=== PATIENT | female | born 1940 | race Two or more races ===

== ENCOUNTER 2017-11-15 12:56 | Outpatient (CLI) | payer MEDICARE, BC ==
[~2017-11-15] VITALS: Ht 154.9 cm; Wt 53.5 kg
[~2017-11-15 12:56] MED LIST: AMITRIPTYLINE25 MG ORAL; ATORVASTATIN CA10 MG ORAL; KLONOPIN0.5 MG ORAL; METFORMIN HCL500 M1 ORAL; SYNTHROID100 MCG ORAL; [UNRECOGNIZED DRUG - OTHER]
[2017-11-15 13:08] VITALS: BP 109/54
--- NOTE | 2017-11-15 14:17 | GI Initial Consult Note ---
History of Present Illness General Date patient seen: Nov 15, 2017 Time patient seen: 14:06 Referring physician: NGUYỄN Reason for Consultation: EGD/COLONOSCOPY SCREENING Present Illness HPI 77 year old patient, referred by Dr. Esposito for routine EGD/colonoscopy screening. Last EGD/colonoscopy performed 2013. She presents today with no GI symptoms; denies abdominal pain, N/V/D or diarrhea. Denies any unintentional weight loss or changes in dietary habits. No signs of abuse or neglect. Patient is not fall risk. Home Meds Reported Medications Amitriptyline HCl (ELAVIL*) 25 Mg Tab, 25 MG ORAL BEDTIME, TAB 12/05/13 Clonazepam* (KLONOPIN*) 0.5 Mg Tablet, 0.5 MG ORAL Q6H, #15 TAB 0 Refills 12/05/13 Metformin Hcl* (METFORMIN HCL*) 500 Mg Tablet, 500 MG ORAL TWICE A DAY, TAB 12/05/13 Levothyroxine Sodium* (SYNTHROID*) 100 Mcg Tablet, 100 MCG ORAL DAILY, TAB Take in the morning on an empty stomach, at least 30 minutes before food. 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 Past Surgical History: Thyroidectomy Right knee Arthroscopy Bunion Family History Narrative Father >> CVA Mother >> CAD Social History: Reports: other - tea Review of Systems All Other Systems: negative except mentioned in HPI Physical Exam BP 109/54 P 82 96 RA HT 5'11 WT 118 Sp02 EP Interpretation: reviewed, normal General Appearance: well appearing, no apparent distress, alert Head: normocephalic EENT: PERRL/EOMI, normal ENT inspection Neck: supple Respiratory: normal breath sounds, no respiratory distress Cardiovascular: normal rate Gastrointestinal: normal inspection, non tender, soft, normal bowel sounds, non -distended Rectal: deferred Genitourinary: no CVA tenderness Musculoskeletal: normal inspection, back normal Neurologic: normal inspection, alert, oriented x3, responsive Psychiatric: normal inspection, judgement/insight normal, memory normal Skin: normal inspection, normal color, no rash, warm/dry, palpation normal, well hydrated Lymphatic: normal inspection, no adenopathy GI: Plan Problems: (1) Colonoscopy planned (2) H/O thyroidectomy (3) S/P knee surgery Plan EGD/colonoscopy scheduled 11/28/17. - CLD & (Nulytely/Suprep/Movi-Prep) prep instructions given and acknowledged by patient. - NPO @ [place] day prior procedure explained. Seen with Dr. Cody. Thank you for this patient referral. The patient was seen and examined at bedside and all new and available data was reviewed in the patients chart. I agree with the above findings, impression and plan. (Patient seen earlier today. Signature stamp does not reflect patient encounter time.). - MD Leti SinclairAbrazo Arizona Heart HospitalHumberto RETORT LOAD EXPEDITER Nov 15, 2017 14:16
[2017-11-15] MEDS ORDERED: ADVIL200 MG ORAL (16:07)
== END 2017-11-15 13:26 | disposition home or self-care (01) ==
LOC: PAN 12:56
DX: Z12.11 Encounter for screening for malignant neoplasm of colon (principal); E89.0 Postprocedural hypothyroidism; Z98.890 Other specified postprocedural states; M19.90 Unspecified osteoarthritis, unspecified site
CPT/HCPCS: 99201

== ENCOUNTER → 2017-12-27 | Day surgery (SDC) | payer MEDICARE, BC ==
--- NOTE | 2017-11-28 08:32 | Anethesia Preoperative Eval ---
Anesthesia Pre-op PMH/ROS General Date of Evaluation: Nov 28, 2017 Time of Evaluation: 08:26 Anesthesiologist: farhan Mallampati Score Class I : Soft palate, uvula, fauces, pillars visible Class II: Soft palate, uvula, fauces visible Class III: Soft palate, base of uvula visible Class IV: Only hard plate visible Surgeon: yobany Diagnosis: abdominal pain Surgical Procedure: egd/colonoscopy Anesthesia History: none Social History: smoking - nonsmoker Family History: no anesthesia problems Allergies: Coded Allergies: No Known Allergies (Unverified , 12/05/13) Medications: see eMAR Past Medical History Cardiovascular: Reports: HTN, other - hypercholesterolemia Neurologic/Psychiatric: Reports: depression/anxiety Endocrine: Reports: DM, hypothyroidism, other - thyroid cancer HEENT: Reports: other - farsighted Musculoskeletal/Integumentary: Reports: OA PSxH Narrative: thyroidectomy Anesthesia Pre-op A/P Risk Assessment & Plan Assessment: asa4 Plan: mac Status Change Before Surgery: No Pre-Antibiotics Drug: Cheyanne Wilkins MD Nov 28, 2017 08:32
[2017-12-27] VITALS (8 sets, daily range): BP systolic 113–136; BP diastolic 52–84
[~2017-12-27] VITALS: Ht 154.9 cm; Wt 52.2 kg
[~2017-12-27] MED LIST changes: +ADVIL200 MG ORAL; +Atropine Inj 1mg/10ml Syr IV PRN; +Atropine Sulfate 0.4mg/ml inj ONE; +DiphenhydrAMINE 50mg/ml Inj IVP PRN; +KLONOPIN1 MG ORAL; +Lidocaine 1% MPF 10mg/ml 5ml ONE; +Midazolam 2mg/2ml Inj IVP PRN; +Propofol 200mg/20ml IV ONE; +fentaNYL 100 mcg/2 mL IV PRN
--- NOTE | 2017-12-27 10:59 | Pre-Procedure Note/Attestation ---
Pre-Procedure Note/Attestation Complete Prior to Procedure Planned Procedure: not applicable Procedure Narrative: esophagogastroduodenoscopy and colonoscopy Indications for Procedure Pre-Operative Diagnosis: screening colon, GERD Attestation I attest that I discussed the nature of the procedure; its benefits; risks and complications; and alternatives (and the risks and benefits of such alternatives ), prior to the procedure, with the patient (or the patient's legal inside technical sales representative). I attest that, if there was a reasonable possibility of needing a blood transfusion, the patient (or the patient's legal inside technical sales representative) was given the [facility] standardized written summary, pursuant to the [place] Blood Safety Act ([place] Health and Safety Code # 1645, as amended). I attest that I re-evaluated the patient just prior to the surgery and that there has been no change in the patient's H&P, except as documented below: Lisandro Cody MD Dec 27, 2017 10:59
--- NOTE | 2017-12-27 11:00 | Short Stay Surgery H&P ---
History of Present Illness History of Present Illness Chief Complaint see recent consult note HPI Manjinder White is a 77 year old female who was admitted on for Abdominal Pain,Colon Screening Patient History Allergies: Coded Allergies: No Known Allergies (Unverified , 12/27/17) Relevant Family History: Patient reports no known family medical history. Medication History Scheduled Amitriptyline HCl (Elavil*), 25 MG ORAL BEDTIME, (Reported) Atorvastatin Calcium* (Lipitor*), 10 MG ORAL BEDTIME, (Reported) Clonazepam* (Klonopin*), Unknown Dose ORAL BEDTIME, (Reported) Ibuprofen* (Advil*), 200 MG ORAL PRN, (Reported) Levothyroxine Sodium* (Synthroid*), 100 MCG ORAL DAILY, (Reported) Metformin Hcl* (Metformin Hcl*), 500 MG ORAL TID, (Reported) Physical Exam Vital Signs Last Vital Signs Date Time Temp Pulse Resp B/P (MAP) Pulse Ox O2 Delivery O2 Flow Rate FiO2 12/27/17 10:00 97.9 82 16 136/65 98 Room Air 97.9 Plan Attestation Are the patient's medical conditions optimized for surgery? Lisandro Cody MD Dec 27, 2017 11:00
--- NOTE | 2017-12-27 12:06 | Endoscopy Procedure Note ---
Endoscopy Procedure Note General Indication for Procedure: gerd, screening colon Procedures Performed: EGD, colonoscopy Operative Findings/Diagnosis: gastritis, one colon polyp Specimen: yes Pt Tolerated Procedure Well: Yes Estimated Blood Loss: none Anesthesia Anesthesiologist: amber Anesthesia: MAC Inserted Devices Implant(s) used?: No Quality Quality of Bowel Preparation: Good Did scope reach the cecum?: Yes Was there any complications?: No GI Core Measures 50 yrs or older w/o bx or poly: No 10yrs. F/U not recommended: Yes If not recommended, why?: Above average risk 10 yrs. F/U needed: Yes 18 years or older w/prev. colo: Yes <3yrs. since last colonoscopy: No Lisandro Cody MD Dec 27, 2017 12:06
--- NOTE | 2017-12-27 13:17 | Anethesia Preoperative Eval ---
Anesthesia Pre-op PMH/ROS General Date of Evaluation: Dec 27, 2017 Time of Evaluation: 11:11 Anesthesiologist: farhan ASA Score: ASA 3 Mallampati Score Class I : Soft palate, uvula, fauces, pillars visible Class II: Soft palate, uvula, fauces visible Class III: Soft palate, base of uvula visible Class IV: Only hard plate visible Mallampati Classification: Class II Surgeon: yobany Diagnosis: abdominal pain/colon screening Surgical Procedure: egd/colonoscopy Anesthesia History: none Family History: no anesthesia problems Allergies: Coded Allergies: No Known Allergies (Unverified , 12/27/17) Medications: see eMAR Patient NPO?: Yes Past Medical History Cardiovascular: Reports: HTN Endocrine: Reports: DM, hypothyroidism, other - thyroid cancer Anesthesia Pre-op Phys. Exam Physician Exam Last Vital Signs Date Time Temp Pulse Resp B/P (MAP) Pulse Ox O2 Delivery O2 Flow Rate FiO2 12/27/17 12:40 97.2 83 18 126/52 98 Room Air 97.2 12/27/17 12:15 3 Constitutional: NAD Neurologic: CN 2-12 intact Cardiovascular: RRR Respiratory: CTA Gastrointestinal: S/NT/ND Airway Exam Mallampati Score: Class II MO: limited Neck: flexible TMD: 2fb ROM: limited Anesthesia Pre-op A/P Risk Assessment & Plan Assessment: asa3 Plan: mac Status Change Before Surgery: No Pre-Antibiotics Drug: Cheyanne Wilkins MD Dec 27, 2017 13:17
--- NOTE | 2017-12-27 13:20 | Immediate Post-Op Evaluation ---
Immediate Post-Op Evalulation Immediate Post-Op Evalulation Procedure: egd/colonoscopy/bx Date of Evaluation: Dec 27, 2017 Time of Evaluation: 12:20 IV Fluids: 550ml 0.9ns Blood Products: none Estimated Blood Loss: negligible Blood Pressure Systolic: 120 Blood Pressure Diastolic: 66 Pulse Rate: 82 Respiratory Rate: 18 O2 Sat by Pulse Oximetry: 99 Temperature (Fahrenheit): 97.5 Pain Score (1-10): 0 Nausea: No Vomiting: No Complications none Patient Status: awake, reacts, patent Hydration Status: adequate Drug: Cheyanne Wilkins MD Dec 27, 2017 13:20
--- NOTE | 2017-12-27 13:21 | 48 Hour Post Anesthesia Eval ---
Post Anesthesia Evaluation Procedure: egd/colonoscopy/bx Date of Evaluation: Dec 27, 2017 Time of Evaluation: 12:22 Blood Pressure Systolic: 116 0: 84 Pulse Rate: 63 Respiratory Rate: 15 Temperature (Fahrenheit): 97.5 O2 Sat by Pulse Oximetry: 99 Airway: patent Nausea: No Vomiting: No Pain Intensity: 0 Hydration Status: adequate Cardiopulmonary Status: stable Mental Status/LOC: patient returned to baseline Post-Anesthesia Complications: none Follow-up care needed: N/A Cheyanne Bolaños MD Dec 27, 2017 13:21
--- NOTE | 2017-12-27 16:15 | Procedure Note ---
DATE OF PROCEDURE: 12/27/2017 SURGEON: Lisandro Cody M.D. ANESTHESIOLOGIST: Dr. Crow. PROCEDURE: Upper endoscopy with biopsy and colonoscopy . ANESTHESIA: Per Dr. Crow. INSTRUMENT: Olympus adult flexible upper endoscope and colonoscope. INDICATION: Screening colonoscopy evaluation, chronic abdominal pain, GERD. The procedure, risks, benefits, and possible consequences, including hemorrhage, aspiration, perforation and infection, and alternative treatments, were explained to the patient/legal guardian by Dr. Lisandro Cody and the patient/legal guardian understood and accepted these risks. DESCRIPTION OF PROCEDURE: After informed consent was obtained and the patient was adequately sedated, Olympus upper endoscope was advanced from the mouth into the second portion of duodenum and retroflexion was performed in the stomach. There was evidence of diffuse gastritis. Random biopsy from antrum and body was obtained to rule out H. pylori infection, otherwise the rest of the endoscopic examination grossly looked within normal limits. At this time, the upper endoscope was retrieved. The patient was turned over for colonoscopy. First, rectal exam was performed which was positive for internal hemorrhoids. Then, the scope was advanced from the rectum into the cecum documented by appendiceal orifice, ileocecal valve, and right upper quadrant palpation. Quality of prep was good. The patient had one flat polyp in the cecum which roughly measured about 6 mm, removed with the cold biopsy forceps technique. The rest of the colonoscopy examination grossly looked within normal limits. No obvious source of bleeding, polyp, or any other mass was seen. Retroflexion of the rectum showed evidence of internal hemorrhoids. SUMMARY OF FINDINGS: 1. Gastritis, status post biopsy. 2. One colonic polyp removed, see above for details. 3. Internal hemorrhoids. RECOMMENDATIONS: Follow up biopsy results and treat accordingly. The patient to follow in the office for further workup of abdominal issues. Lisandro Cody M.D. DR: Vinod JOB#: [id number] CC:
--- NOTE | 2017-12-30 12:15 | Cardiology Report ---
APPROVED REPORT EKG Measurement Heart [id number] Normal sinus rhythm Normal ECG
== END | disposition home or self-care (01) ==
LOC: GAS 09:01
DX: Z12.11 Encounter for screening for malignant neoplasm of colon (principal); K64.8 Other hemorrhoids; D12.0 Benign neoplasm of cecum; K29.50 Unspecified chronic gastritis without bleeding; K21.9 Gastro-esophageal reflux disease without esophagitis; I10 Essential (primary) hypertension; E11.9 Type 2 diabetes mellitus without complications; E03.9 Hypothyroidism, unspecified; Z85.850 Personal history of malignant neoplasm of thyroid
CPT/HCPCS: 43239; 45380; 82962; 93005; J0461; J2704; 94003; 94150

== ENCOUNTER 2018-01-08 10:15 | Outpatient (CLI) | payer MEDICARE, BC ==
[~2018-01-08 10:15] MED LIST changes: -Atropine Inj 1mg/10ml Syr IV PRN; -Atropine Sulfate 0.4mg/ml inj ONE; -DiphenhydrAMINE 50mg/ml Inj IVP PRN; -Lidocaine 1% MPF 10mg/ml 5ml ONE; -Midazolam 2mg/2ml Inj IVP PRN; -Propofol 200mg/20ml IV ONE; -fentaNYL 100 mcg/2 mL IV PRN
[2018-01-08 10:25] VITALS: BP 118/48
--- NOTE | 2018-01-08 15:31 | GI Progress Note ---
Assessment/Plan Status: stable Status Narrative Seen with Dr. Cody. Assessment/Plan SUMMARY OF FINDINGS reviewed with patient: 1. Gastritis, status post biopsy. >> negative 2. One colonic polyp removed, see above for details. 3. Internal hemorrhoids. RECOMMENDATIONS: repeat colon x5 years start Omeprazole 40mg RTC x1 month The patient was seen and examined at bedside and all new and available data was reviewed in the patients chart. I agree with the above findings, impression and plan. (Patient seen earlier today. Signature stamp does not reflect patient encounter time.). - Lisandro Cody MD Subjective Gastrointestinal/Abdominal: Reports: no symptoms Subjective EGD/colonoscopy review Objective Last 24 Hour Vital Signs Date Time Temp Pulse Resp B/P (MAP) Pulse Ox O2 Delivery O2 Flow Rate FiO2 01/08/18 10:25 97.8 78 16 118/48 98 97.8 General Appearance: WD/WN, no apparent distress, alert Cardiovascular: normal rate Respiratory/Chest: normal breath sounds, no respiratory distress Abdominal Exam: normal bowel sounds, non tender, soft Extremities: normal range of motion, non-tender Albert Landeros KNUCKLE BENDER Jan 08, 2018 15:31
== END 2018-01-08 10:45 | disposition home or self-care (01) ==
LOC: PAN 10:15
DX: K29.70 Gastritis, unspecified, without bleeding (principal); K64.8 Other hemorrhoids
CPT/HCPCS: 99212